=== PATIENT | female | born 1990 | race Caucasian/White ===

== ENCOUNTER 2020-05-02 18:49 | Emergency (ER) | payer MEDICAID, OTHER ==
[~2020-05-02] VITALS: Ht 160 cm; Wt 59.0 kg
[2020-05-02 20:21] VITALS: BP 115/61
== END 2020-05-02 21:35 | disposition home or self-care (01) ==
LOC: ER 18:49
DX: R05 Cough (principal); R09.81 Nasal congestion; R06.02 Shortness of breath; Z20.828 Contact with and (suspected) exposure to other viral communicable diseases
CPT/HCPCS: 87070; 87635; 87804; 87880